=== PATIENT | female | born 1975 | race Caucasian/White ===

== ENCOUNTER 2017-06-29 21:40 | Inpatient (IN) | payer BC ==
[~2017-06-29] VITALS: Ht 152.4 cm; Wt 99.8 kg
[~2017-06-29 21:40] MED LIST: HYDR-2758 PO; ONDA4TAB10 SL; ONDA4TAB7 PO; OXYC-323 PO; PROAIR HFA8.5 GM IH
[2017-06-29 22:42] LABS: BASO # 0.1 x10^3/uL (0.0-0.2); BASO % 1 % (0-3); EOS % 2 % (0-3); HEMOGLOBIN 14.5 g/dL (12.0-15.5); LYMPH # 3.4 x10^3/uL (1.0-4.8); LYMPH % 30 % (24-48); MEAN CORPUSCULAR HEMOGLOBIN 31 pg (25-35); MEAN CORPUSCULAR HGB CONC 34 g/dL (31-37); MEAN CORPUSCULAR VOLUME 92 fL (79-100); MONO % 8 % (0-9); NEUT % 60 % (31-73); PLATELET COUNT 198 x10^3/uL (140-400); RED BLOOD COUNT 4.67 x10^6/uL (3.50-5.40); RED CELL DISTRIBUTION WIDTH 13.5 % (11.5-14.5); WHITE BLOOD COUNT 11.4 x10^3/uL (4.0-11.0)
[2017-06-29 22:50] LABS: CALCIUM 9.2 mg/dL (8.5-10.1); CREATININE 0.7 mg/dL (0.6-1.0); GFR 91.3; POTASSIUM 3.7 mmol/L (3.5-5.1)
[2017-06-29 22:55] LABS: ALBUMIN 3.9 g/dL (3.4-5.0); ALBUMIN/GLOBULIN RATIO 1.3 (1.0-1.7); TOTAL BILIRUBIN 0.3 mg/dL (0.2-1.0); TOTAL PROTEIN 6.8 g/dL (6.4-8.2)
[2017-06-29] MEDS ORDERED: ASPIRIN CHEWABLE 81 MG TABLET. PO ONE (23:00)
[2017-06-29] MEDS ORDERED: IV NORMAL SALINE 1000ML BAG 1,000 ML IV SCH (23:00)
--- NOTE | 2017-06-29 23:11 | PHYS DOC ---
Past Medical History Past Medical History: Asthma, GERD Past Surgical History: Cholecystectomy, , Gastric Bypass, Hysterectomy , Tonsillectomy Additional Past Surgical Histo: LAP BAND, GASTRIC SLEEVE, LEFT FOOT REPAIR Alcohol Use: Occasionally Drug Use: None Adult General Chief Complaint Chief Complaint: Palpitations HPI HPI 42-year-old female with a long history of tobacco abuse as well as a strong family history of coronary artery disease with mother who of an [place] at 44. Patient now presents to the emergency department after episode of chest pressure earlier today. Patient states she walked up a flight of steps and got profoundly short of breath with diaphoresis and nausea. Symptoms were relieved with rest. Denies productive cough or fever. No pleuritic pain. Pain is not worse with palpation or movement. Patient did have a stress test in the distant past about 10 years ago and she was told was abnormal but she never followed up and she does smoke daily Review of Systems Review of Systems Constitutional: Denies fever or chills [] Eyes: Denies change in visual acuity, redness, or eye pain [] HENT: Denies nasal congestion or sore throat [] Respiratory: Denies cough or shortness of breath [] Cardiovascular: No additional information not addressed in HPI [] GI: Denies abdominal pain, nausea, vomiting, bloody stools or diarrhea [] : Denies dysuria or hematuria [] Musculoskeletal: Denies back pain or joint pain [] Integument: Denies rash or skin lesions [] Neurologic: Denies headache, focal weakness or sensory changes [] Endocrine: Denies polyuria or polydipsia [] Current Medications Current Medications Current Medications Medications (Trade) Dose Ordered Sig/Fred Start Time Stop Time Status Last Admin Dose Admin Aspirin (Children'S Aspirin) 324 mg 1X ONCE 06/29/17 23:00 06/29/17 23:01 DC 06/29/17 22:44 324 MG Nicotine (Nicoderm Cq 21mg) 1 patch DAILY 06/29/17 23:15 06/29/17 23:12 1 PATCH Sodium Chloride 1,000 ml @ 100 mls/hr Q10H 06/29/17 23:00 06/30/17 08:59 06/29/17 22:44 100 MLS/HR Allergies Allergies Allergies Coded Allergies Type Severity Reaction Last Updated Verified Corticosteroids (Glucocorticoids) Allergy Intermediate Swelling 2/4/16 Yes naproxen Allergy Intermediate SEE COMMENT 11/27/15 No fluticasone Adverse Reaction Intermediate SEE COMMENT 11/27/15 Yes salmeterol Adverse Reaction Intermediate SEE COMMENT 11/27/15 Yes pregabalin Adverse Reaction Mild SEE COMMENT 06/29/17 No Physical Exam Physical Exam 2-year-old female well-appearing no acute distress clear lungs regular rate and rhythm nontender chest wall no crepitus or lower extremity edema benign exam Constitutional: Well developed, well nourished, no acute distress, non-toxic appearance. [] HENT: Normocephalic, atraumatic, bilateral external ears normal, oropharynx moist, no oral exudates, nose normal. [] Eyes: PERRLA, EOMI, conjunctiva normal, no discharge. [] Neck: Normal range of motion, no tenderness, supple, no stridor. [] Cardiovascular:Heart rate regular rhythm, no murmur [] Lungs & Thorax: Bilateral breath sounds clear to auscultation [] Abdomen: Bowel sounds normal, soft, no tenderness, no masses, no pulsatile masses. [] Skin: Warm, dry, no erythema, no rash. [] Back: No tenderness, no CVA tenderness. [] Extremities: No tenderness, no cyanosis, no clubbing, ROM intact, no edema. [] Neurologic: Alert and oriented X 3, no focal deficits noted. [] Psychologic: Affect normal, judgement normal, mood normal. [] Current Patient Data Vital Signs Vital Signs Date Time Temp Pulse Resp B/P (MAP) Pulse Ox O2 Delivery O2 Flow Rate FiO2 06/29/17 21:46 97.9 82 18 115/57 (76) 93 Room Air 97.9 Lab Values Laboratory Tests Test 06/29/17 21:58 White Blood Count 11.4 x10^3/uL (4.0-11.0) H Red Blood Count 4.67 x10^6/uL (3.50-5.40) Hemoglobin 14.5 g/dL (12.0-15.5) Hematocrit 43.0 % (36.0-47.0) Mean Corpuscular Volume 92 fL (79-100) Mean Corpuscular Hemoglobin 31 pg (25-35) Mean Corpuscular Hemoglobin Concent 34 g/dL (31-37) Red Cell Distribution Width 13.5 % (11.5-14.5) Platelet Count 198 x10^3/uL (140-400) Neutrophils (%) (Auto) 60 % (31-73) Lymphocytes (%) (Auto) 30 % (24-48) Monocytes (%) (Auto) 8 % (0-9) Eosinophils (%) (Auto) 2 % (0-3) Basophils (%) (Auto) 1 % (0-3) Neutrophils # (Auto) 6.8 x10^3uL (1.8-7.7) Lymphocytes # (Auto) 3.4 x10^3/uL (1.0-4.8) Monocytes # (Auto) 0.9 x10^3/uL (0.0-1.1) Eosinophils # (Auto) 0.2 x10^3/uL (0.0-0.7) Basophils # (Auto) 0.1 x10^3/uL (0.0-0.2) Sodium Level 143 mmol/L (136-145) Potassium Level 3.7 mmol/L (3.5-5.1) Chloride Level 105 mmol/L (98-107) Carbon Dioxide Level 26 mmol/L (21-32) Anion Gap 12 (6-14) Blood Urea Nitrogen 15 mg/dL (7-20) Creatinine 0.7 mg/dL (0.6-1.0) Estimated GFR (Cockcroft-Gault) 91.3 BUN/Creatinine Ratio 21 (6-20) H Glucose Level 113 mg/dL (70-99) H Calcium Level 9.2 mg/dL (8.5-10.1) Total Bilirubin 0.3 mg/dL (0.2-1.0) Aspartate Amino Transferase (AST) 17 U/L (15-37) Alanine Aminotransferase (ALT) 16 U/L (14-59) Alkaline Phosphatase 75 U/L (46-116) Troponin I Quantitative < 0.017 ng/mL (0.000-0.055) Total Protein 6.8 g/dL (6.4-8.2) Albumin 3.9 g/dL (3.4-5.0) Albumin/Globulin Ratio 1.3 (1.0-1.7) Laboratory Tests 06/29/17 21:58 Laboratory Tests 06/29/17 21:58 EKG EKG EKG normal sinus rhythm at 80 left axis deviation no STEMI interpreted by me [] Radiology/Procedures Radiology/Procedures Chest x-ray no acute disease interpreted by me Course & Med Decision Making Course & Med Decision Making Pertinent Labs and Imaging studies reviewed. (See chart for details) Signs and symptoms consistent with chest pain a possible cardiac etiology in a 42-year-old female with a strong family history and history of heavy smoking. Unremarkable. Patient stable in ED with a benign chest x-ray and negative troponin. Case discussed with Dr. Millie acharya hospitalist on-call who is aware of history and findings and agrees with admission admission to telemetry to his service with consultation to cardiology Dr. Roger [] Je Disclaimer Dragon Disclaimer This electronic medical record was generated, in whole or in part, using a voice recognition dictation system. Departure Departure Impression: Primary Impression: Chest pain Disposition: ADMITTED INPATIENT Admitting Physician: Millie Acharya Condition: STABLE Referrals: ANTWON BISHOP MD (PCP) EMILIANA VALLADARES MD Jun 29, 2017 23:11
[2017-06-29] MEDS ORDERED: NICOTINE 21MG PATCH. TD SCH (23:15)
[2017-06-29] MEDS ORDERED: LORazepam 1 MG TABLET PO ONE (23:45)
[2017-06-30 00:33] VITALS: BP 107/76
--- NOTE | 2017-06-30 03:11 | ACF ---
Admission Forms Criteria CARDIOLOGY GRG Clinical Indications for Admission to Inpatient Care ( Robinson/check or initial the applicable condition/criteria) Hospital admission is needed for appropriate care of the patient because of ANY ONE of the following: [ ] I. Hemodynamic instability as indicated by ALL of the following (1)(2)(3) (4)(5)(6)(7)(8)(9)(10) [ ]a) Vital sign abnormality not readily corrected by appropriate treatment with 12-24 hours for ANY ONE: [ ]i) Hypotension that persists despite appropriate treatment (eg, volume repletion) [ ]ii) Tachycardiathat persists despite appropriate tx ( e.g., analgesia, fluids, sedation as indicated [ ]iii) Orthostatic vital sign changes that persists despite appropriate treatment (eg, volume repletion) [ ]b) Vital sign abnormailty that is severe indicated by ANY ONE of the following: [ ]i) Inadequate perfusion indicated by ANY ONE of the following: [ ] 1) Lactic acidosis (> 2 mmol/L) [ ] 2) New abnormal capillary refill (> 3 seconds) [ ] 3) Reduced urine output [ ] 4) New altered mental status [ ] 5) Myocardial Ischemia [ ] 6) Other metabolic acidosis (arterial pH <7.35 ) not otherwise explained. [ ]ii) Mean arterial pressure[A] less than 60 mm Hg [ ]iii) Mean arterial pressure[A] less than 70 mm Hg after 30 minutes of appropriate treatment (eg, fluid resuscitation) [ ]iv) Sustained heart rate greater than 120 beats per minute in adult or child 6 years or older[B] [ ]v) IV inotropic or vasopressor medication required to maintain adequate blood pressure or perfusion [ ] II. Severe heart failure as indicated by ANY ONE of the following(17)(18) [ ]a) Respiratory distress [ ]b) Hypotension [ ]c) Debilitating anasarca refractory to therapy (eg, tissue breakdown with infection)[C](19) [ ]d) Cardiac arrhythmias of immediate concern [ ]e) Myocardial ischemia [ ] III. Cardiac arrhythmias or findings of immediate concern indicated by ANY ONE of the following (21)(22): [ ] a) Heart rhythms that are inherently dangerous or unstable indicated by ANY ONE of the following (23)(24)(25): [ ] i) Resuscitated ventricular fibrillation or cardiac arrest [ ] ii) Ventricular escape rhythm [ ] iii) Sustained ventricular tachycardia (30 seconds or more of ventricular rhythm at greater than 100 beats per minute) [ ] iv) Nonsustained ventricular tachycardia and ANY ONE of the following: [ ] 1) Suspected cardiac ischemia as cause or consequence of ventricular tachycardia [ ] 2) Acute myocarditis [ ] b) Unstable cardiac conduction defects indicated by ANY ONE of the following(25)(26)(27) [ ] i) Type II second-degree atrioventricular block [ ]ii) Third-degree atrioventricular block [ ]iii) New-onset left bundle branch block with suspected myocardial ischemia [ ]c) Any heart rhythm and ANY ONE of the following (23)(24)(28)(29) (30) [ ] i) Continuous long-term ECG monitoring needed (e.g., initiation of drug requiring monitoring for more than 24 hours) [ ] ii) Patient has automatic implanted cardioverter defibrillator that is repeatedly firing, malfunctioning, or in need of immediate adjustment of settings beyond the scope of ambulatory or observation care [ ]d) Heart rhythms of concern due to ANY ONE of the following: [ ] i) Hypotension [ ] ii) Respiratory distress [ ] iii) Association with other significant symptoms (e.g., bradycardia with syncope or ongoing dizziness, supraventricular tachycardia with chest pain (28)(29)(31) [ ] IV. Monitoring for cardiac contusion beyond the scope of observation care needed [A](32)(33)(34) [ ] V. Surgical or device complication (e.g., valve replacement complication , ICD disfunction or pacemaker dysfunction) (49)(50)(51)(52)(53)(54) [ ] . Inpatient palliative care needed. [F](51)(52) Also use Inpatient Palliative Care Criteria [ ] VII. Nonbacterial thrombotic (marantic) endocarditis(43)(44)(55)(56)(57) [X] VIII. Cardiology condition, symptom, or finding for which emergency and observation care has failed or are not considered appropriate. [ ] IX. Acute valvular disease requiring inpatient as indicated by ANY ONE of the following (40)(41) [ ]a) Acute valvular regurgitation (42) [ ]b) Noninfectious valvulitis (43)(44) [ ]c) Obstructive valve thrombosis (45)(46) [ ]d) Paravalvular leak(47)(48) [ ]e) Other significant valvular disorder remaining after emergency or observation level of care (as appropriate) [ ]X. Pericardial disease requiring inpatient treatment as indicated by ANY ONE of the following (35)(36)(37)(38) [ ]a) Suspected tamponade [ ]b) Hemopericardium [ ]c) Other significant pericardial disorder remaining after emergency or observation level of care (as appropriate)(39) [ ] XI. Cardiac ischemia beyond scope of emergency and observation care. [ ] XII. Cyanotic heart disease requiring inpatient care as indicated by 1 or more of the following(58)(59)(60): [ ]a) Acute onset of hypoxemia [ ]b) Exacerbation [ ] XIII. Hypertension requiring inpatient treatment as indicated by ANYONE of the following(11)(12)(13)(14): [ ]a) Severe hypertension (SBP greater than 180 mm Hg or DBP greater than 110 mm Hg, or greater than the 95th percentile for age, gender, and height in pediatric patients) that cannot be controlled (eg, to SBP less than 160 mm Hg and DBP less than 100 mm Hg) by emergency department or observation care treatment(15) [ ]b) Acute end organ damage secondary to hypertension (SBP greater than 140 mm Hg or DBP greater than 90 mm Hg) as indicated by ANYONE of the following: [ ] i) Hypertensive encephalopathy (eg, Altered mental status)(16) [ ] ii) Cerebral infarction [ ] iii) Intracranial hemorrhage [ ] iv) Myocardial ischemia or infarction [ ] v) Heart failure (eg, pulmonary edema) [ ] vi) Aortic dissection [ ] vii) Increased creatinine (new) with reduction of more than 50% in estimated glomerular filtration rate from baseline [ ] viii) Papilledema [ ] ix) Retinal hemorrhage [ ] x) Microangiopathic hemolytic anemia [ ] xi) Seizure [ ] xii) Other significant finding secondary to hypertension [ ] XIV. Complications of transplanted heart indicated by ANY ONE of the following(61): [ ]a) Acute graft rejection requiring inpatient management (eg, intravenous imunosuppression)(62)(63) [ ]b) Acute graft heart failure indicated by ANY ONE of the following(64): [ ] i) Hemodynamic instability [ ] ii) Cardiac arrhythmias of immediate concern [ ] iii) Pulmonary edema that is very severe (eg, mechanical ventilation needed, imminent or likely, need for 100% oxygen to keep oxygen saturation above 90%) [ ] iv) Pulmonary edema that is persistent as indicated by ALL of the following: [ ] 1) New need for oxygen therapy to keep oxygen saturation above 90 % (or increased FiO2 need from baseline) [ ] 2) Has not improved sufficiently with emergency department or observation care IV diuretics or other heart failure treatments[E]. [ ] iv) Altered mental status that is severe or persistent [ ] iv) Increased creatinine (new on laboratory test) with reduction of more than 50% in estimated glomerular filtration rate from baseline [ ] iv) Progressively (ongoing) rising creatinine (known from past laboratory test) with reduction of more than 25% in estimated glomerular filtration rate from baseline [ ] iv) Acute renal failure [ ] iv) Acute peripheral ischemia (eg, examination shows pulseless, cool, mottled, or cyanotic extremity) [ ] iv) Pulmonary artery catheter monitoring needed [ ] iv) Other sign or symptom of heart failure requiring inpatient treatment (ie, too severe or not responsive to outpatient and observation care treatment) [ ]c) Infection requiring inpatient management (eg, Hemodynamic instability, need for intravenous antimicrobial treatment)(66)(67)(68)(69)(70) [ ]d) Cardiac allograft vasculopathy requiring inpatient management (eg evidence of cardiacischemia)(71) [ ]e) Other complication of transplanted heart (eg, stroke, severe pulmonary hypertension, severe valvular dysfunction) requiring inpatient management(72) The original [facility] content created by [facility] has been revised. The portions of the content which have been revised are identified through the use of italic text, and [facility] has neither reviewed nor approved the modified material. All other unmodified content is copyright [facility]. Please see references footnoted in the original [facility] edition 2014 Admission Criteria Met?: Yes OMARI ZAPATA Jun 30, 2017 03:11
--- NOTE | 2017-06-30 07:19 | EKG ---
[facility] [address] [place] [address] Test Date: 2017-06-29 Test Time: 21:51:24 Pat Name: MEGHANA VERONICA Department: Room: Gender: F [place] Hand: : 1975 Requested By: EMILIANA VALLADARES Order Number: [id number] Reading MD: Measurements Intervals [place] Rate: 80 P: 54 MD: 150 QRS: 37 QRSD: 90 T: 29 QT: 370 QTc: 430 Interpretive Statements SINUS RHYTHM QRS(T) CONTOUR ABNORMALITY CONSIDER ANTEROLATERAL MYOCARDIAL DAMAGE RI6.01 Unconfirmed report No previous ECG available for comparison
--- NOTE | 2017-06-30 07:49 | RAD ---
Exam performed: One view chest. Indication: medical workup Date of Service: 06/30/2017 12:29 AM Comparison: 06/27/08. Single AP upright portable view chest findings: Cardiomediastinal silhouette is within limits of normal. No acute infiltrates, effusion or pneumothorax is detected. The bony structures are normal. Impression: No acute cardiopulmonary process is detected.
== END 2017-06-30 01:10 | disposition left against medical advice (07) | DRG 313 ==
LOC: ER 21:40 → 5 SOUTH 22:47
PROVIDERS: ADMIT Internal Medicine; ATTEND Internal Medicine
DX: R07.9 Chest pain, unspecified (principal); F17.210 Nicotine dependence, cigarettes, uncomplicated; K21.9 Gastro-esophageal reflux disease without esophagitis; J45.909 Unspecified asthma, uncomplicated; Z90.49 Acquired absence of other specified parts of digestive tract; Z90.710 Acquired absence of both cervix and uterus; Z98.84 Bariatric surgery status; Z88.8 Allergy status to other drugs, medicaments and biological substances; Z79.899 Other long term (current) drug therapy; Z82.49 Family history of ischemic heart disease and other diseases of the circulatory system
CPT/HCPCS: 36415; 71010; 80053; 84484; 85025; 93005; 96361; 96374; J2060; J7030; 99285-25

== ENCOUNTER → 2018-04-10 | Outpatient (CLI) | payer BC | END | disposition home or self-care (01) | LOC: KCIC US 15:16 | DX: M25.562 Pain in left knee (principal) | CPT/HCPCS: 73562; 93971 ==

== ENCOUNTER 2018-05-17 16:09 | Emergency (ER) | payer BC ==
[2018-05-17 16:51] LABS: ADD MAN DIFF? NO
[2018-05-17 16:54] LABS: BASO # 0.1 x10^3/uL (0.0-0.2); BASO % 1 % (0-3); EOS # 0.2 x10^3/uL (0.0-0.7); EOS % 2 % (0-3); HEMATOCRIT 43.7 % (36.0-47.0); HEMOGLOBIN 15.2 g/dL (12.0-15.5); LYMPH # 3.4 x10^3/uL (1.0-4.8); LYMPH % 33 % (24-48); MEAN CORPUSCULAR HEMOGLOBIN 32 pg (25-35); MEAN CORPUSCULAR HGB CONC 35 g/dL (31-37); MEAN CORPUSCULAR VOLUME 90 fL (79-100); MONO # 0.5 x10^3/uL (0.0-1.1); MONO % 5 % (0-9); NEUT % 59 % (31-73); PLATELET COUNT 226 x10^3/uL (140-400); RED BLOOD COUNT 4.83 x10^6/uL (3.50-5.40); RED CELL DISTRIBUTION WIDTH 13.6 % (11.5-14.5); WHITE BLOOD COUNT 10.1 x10^3/uL (4.0-11.0)
[2018-05-17 16:55] LABS: BILIRUBIN,URINE NEGATIVE (NEG); CLARITY,URINE CLEAR; GLUCOSE,URINE NEGATIVE (NEG); NITRITE,URINE NEGATIVE (NEG); PH,URINE 6.5; PROTEIN,URINE NEGATIVE (NEG-TRACE); UROBILINOGEN,URINE 0.2 mg/dL (0.2 mg/dL)
[2018-05-17] MEDS ORDERED: CONTRAST GIVEN. MC (17:00)
[2018-05-17] MEDS: IOHEXOL 240 MG/ML 50ML VIAL. PO (17:00)
[2018-05-17] MEDS: IOHEXOL 300 MG/ML 100ML VIAL. IV (17:00)
[2018-05-17 17:03] LABS: COLOR,URINE STRAW
[2018-05-17 17:04] LABS: ANION GAP 10 (6-14); BLOOD UREA NITROGEN 15 mg/dL (7-20); BUN/CREATININE RATIO 19 (6-20); CARBON DIOXIDE 27 mmol/L (21-32); CHLORIDE 102 mmol/L (98-107); CREATININE 0.8 mg/dL (0.6-1.0); GFR 77.9; GLUCOSE 83 mg/dL (70-99); POTASSIUM 3.7 mmol/L (3.5-5.1); SODIUM 139 mmol/L (136-145)
[2018-05-17 17:05] LABS: RBC,URINE 0 /HPF (0-2); SQUAMOUS EPITHELIAL CELL,UR FEW /LPF; WBC,URINE 0 /HPF (0-4)
[2018-05-17 17:06] LABS: BACTERIA,URINE FEW /HPF (0-FEW)
[2018-05-17 17:11] LABS: ALBUMIN 4.3 g/dL (3.4-5.0); ALBUMIN/GLOBULIN RATIO 1.1 (1.0-1.7); ALK PHOS 86 U/L (46-116); ALT (SGPT) 24 U/L (14-59); AST (SGOT) 27 U/L (15-37); DIRECT BILIRUBIN 0.1 mg/dL (0.0-0.2); TOTAL BILIRUBIN 0.3 mg/dL (0.2-1.0); TOTAL PROTEIN 8.1 g/dL (6.4-8.2)
[2018-05-17] MEDS: ONDANSETRON PF 4 MG/2 ML VIAL. IV (17:46)
[2018-05-17] MEDS: fentaNYL PF VIAL 100 MCG/2 ML VIAL IV (17:46)
[2018-05-17] MEDS: HYDROcodone/APAP 5/325MG 1 TAB TABLET PO (19:23)
== END 2018-05-17 19:26 | disposition home or self-care (01) ==
LOC: ER 16:09
DX: R10.84 Generalized abdominal pain (principal); R19.7 Diarrhea, unspecified; R11.0 Nausea; K21.9 Gastro-esophageal reflux disease without esophagitis; J45.909 Unspecified asthma, uncomplicated; F17.210 Nicotine dependence, cigarettes, uncomplicated; Z90.49 Acquired absence of other specified parts of digestive tract; Z90.710 Acquired absence of both cervix and uterus; Z88.8 Allergy status to other drugs, medicaments and biological substances
CPT/HCPCS: 36415; 74177; 80053; 80076; 81001; 85025; 96374; 96375; 99285-25; J2405; J3010; Q9966; Q9967

== ENCOUNTER → 2018-12-12 | Outpatient (CLI) | payer BC ==
[2018-05-17 18:00] VITALS: BP 106/61
[~2018-12-12] MED LIST changes: +ALBU2.5V8 IH; -HYDR-2758 PO; +HYDR-2761 PO; -OXYC-323 PO; +OXYC1TAB15 PO; -PROAIR HFA8.5 GM IH
--- NOTE | 2018-12-12 16:34 | KCIC ---
EXAM: Chest and bilateral ribs, 5 views. HISTORY: Pain. COMPARISON: None. FINDINGS: A frontal view of the chest and 3 views of the ribs are obtained. There is no infiltrate, pleural effusion or pneumothorax. The heart is normal in size. There are cholecystectomy clips. There are anastomotic sutures within the left upper quadrant. No displaced rib fracture is seen. IMPRESSION: No acute pulmonary or osseous finding. Electronically signed by: Narcisa Owens MD (12/12/2018 4:31 PM) [facility]-[email or web address]
== END | disposition home or self-care (01) ==
LOC: KCIC 15:54
PROVIDERS: ATTEND Family Medicine
DX: R07.81 Pleurodynia (principal); Z90.49 Acquired absence of other specified parts of digestive tract
CPT/HCPCS: 71111

== ENCOUNTER → 2019-01-12 | Outpatient (CLI) | payer BC ==
[2018-05-17 18:00] VITALS: BP 106/61
--- NOTE | 2019-01-12 15:46 | KCIC ---
EXAM: Lumbar spine MRI without contrast. HISTORY: Lower back pain and left hip pain. TECHNIQUE: Multiplanar, multisequence magnetic resonance imaging of the lumbar spine was performed without contrast. COMPARISON: Radiographs dated 07/06/2012. FINDINGS: There is no significant listhesis. The vertebral bodies are normal in height. No suspicious osseous lesion is seen. There is disc desiccation and slight decreased disc height at L4-L5. The conus terminates at L1. There are few incidental osseous hemangiomas. At L1-L2, L2-L3 and L3-L4, there is no stenosis. At L4-L5, there is a broad-based posterior central to left paracentral disc protrusion and annular tear superimposed on a disc bulge. There is mild bilateral facet arthropathy. There is mild left greater than right foraminal stenosis with abutment of the exiting left greater than right L4 nerve roots. There is moderate central canal stenosis. At L5-S1, there is no stenosis. IMPRESSION: 1. L4-L5: Broad-based posterior central to left paracentral disc protrusion and annular tear superimposed on a disc bulge and mild facet arthropathy, resulting in mild left greater than right foraminal stenosis with abutment of the exiting left greater than right L4 nerve roots and moderate central canal stenosis. 2. No additional significant lumbar foraminal or central canal stenosis Electronically signed by: Narcisa Owens MD (01/12/2019 3:44 PM) [facility]-KCIC[facility]
== END | disposition home or self-care (01) ==
LOC: KCIC MRI 14:40
PROVIDERS: ATTEND Family Medicine
DX: M51.26 Other intervertebral disc displacement, lumbar region (principal); M51.36 Other intervertebral disc degeneration, lumbar region; M12.88 Other specific arthropathies, not elsewhere classified, other specified site; M48.061 Spinal stenosis, lumbar region without neurogenic claudication; D18.09 Hemangioma of other sites
CPT/HCPCS: 72148

== ENCOUNTER → 2019-09-17 | Outpatient (CLI) | payer BC ==
[2018-05-17 18:00] VITALS: BP 106/61
[~2019-09-17] MED LIST changes: +CALC-71 PO; +DOCU-109 PO; +HYDR-2765 PO; +METH-38 PO; +MULT-460 PO
[2019-09-17 15:36] LABS: BASO # 0.1 x10^3/uL (0.0-0.2); BASO % 1 % (0-3); EOS # 0.3 x10^3/uL (0.0-0.7); EOS % 2 % (0-3); HEMATOCRIT 45.8 % (36.0-47.0); HEMOGLOBIN 15.5 g/dL (12.0-15.5); LYMPH # 2.5 x10^3/uL (1.0-4.8); LYMPH % 20 % (24-48); MEAN CORPUSCULAR HEMOGLOBIN 31 pg (25-35); MEAN CORPUSCULAR HGB CONC 34 g/dL (31-37); MEAN CORPUSCULAR VOLUME 92 fL (79-100); MONO # 0.6 x10^3/uL (0.0-1.1); MONO % 5 % (0-9); NEUT # 8.9 x10^3/uL (1.8-7.7); NEUT % 72 % (31-73); PLATELET COUNT 238 x10^3/uL (140-400); RED CELL DISTRIBUTION WIDTH 13.6 % (11.5-14.5); WHITE BLOOD COUNT 12.4 x10^3/uL (4.0-11.0)
[2019-09-17 15:52] LABS: ALBUMIN/GLOBULIN RATIO 1.1 (1.0-1.7); POTASSIUM 4.1 mmol/L (3.5-5.1); TOTAL BILIRUBIN 0.3 mg/dL (0.2-1.0); TOTAL PROTEIN 7.7 g/dL (6.4-8.2)
--- NOTE | 2019-09-21 14:28 | HP ---
ADMIT DATE: DATE OF SURGERY: 09/24/2019. HISTORY OF PRESENT ILLNESS: The patient is a pleasant 44-year-old who has difficulty with low back pain and left lateral leg pain. The problem started few months ago. She rates her pain currently as a 7/10. Standing and walking markedly increase her pain. She does get some relief with sitting. 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 She must go up and down stairs, which makes her condition worse. Sitting does help her. She has been taking [place] 5 and she has had physical therapy in December, which she said only helped to a limited degree. She was seen in a pain clinic, but found to be ALLERGIC TO STEROIDS. No epidurals were given. PAST SURGICAL HISTORY: D and C and 1991, in 1993, 1996, 1998, hysterectomy in , tonsillectomy in 1999, lap band in 2004, cholecystectomy in 2013, lap band out 2014, foot surgery 2014. FAMILY HISTORY: Diabetes and [place] at an early age. SOCIAL HISTORY: Employed in an office. . Exercises weekly. Smokes. Drinks 1-2 times per year. Drinks coffee and soda daily. ALLERGIES: No known drug allergies. CURRENT MEDICATIONS: [place]. REVIEW OF SYSTEMS: A 12-point review of systems was obtained and is noncontributory except for that mentioned above. PHYSICAL EXAMINATION: NEUROSURGERY EXAMINATION: GENERAL APPEARANCE: Alert, pleasant, no acute distress. HEAD: Normocephalic, atraumatic. SKIN: Warm and dry. MUSCULOSKELETAL: Lumbar paraspinal muscle bulk is normal, restricted range of motion of lumbar spine, [id number] tenderness of lower lumbar spine with palpation, normal range of motion of the lower extremities bilaterally. EXTREMITIES: No clubbing, cyanosis or edema. NEUROLOGIC: Alert and oriented x 3, normal recent and remote memory, strength 5/5 in bilateral lower extremities, sensory is intact to light touch in bilateral lower extremities. Reflexes are present and symmetric in lower extremities bilaterally, positive straight leg raising on the right, negative straight leg raising on the left, normal gait. IMAGING: Reviewed. I reviewed a lumbar MRI scan from 01/12/2019. On that study at L4-L5 on the left, there is a paracentral disk protrusion with a contact of exiting left L4 and L5 nerve roots. There is a moderate central canal stenosis at this level. ASSESSMENT: Intervertebral disk disorders with radiculopathy, lumbar region. PLAN: I believe the problems at L4-L5 are responsible for pain. She has failed with conservative measures. She has been dealing with this problem for 8 months. I recommend a lumbar microdiskectomy at L4-L5. I did discuss this with her including the risks and technique of surgery. I discussed the expected postoperative course. She understands. She would like to go ahead. We will make the arrangements. PEPE BRADFORD MD DR: ADRIAN/odessa JOB#: [id number] / [id number]
== END | disposition home or self-care (01) ==
LOC: SURGPAT 14:00
PROVIDERS: ATTEND Neurological Surgery
DX: Z01.818 Encounter for other preprocedural examination (principal); M51.16 Intervertebral disc disorders with radiculopathy, lumbar region; Z90.710 Acquired absence of both cervix and uterus; Z90.89 Acquired absence of other organs; Z90.49 Acquired absence of other specified parts of digestive tract; Z79.899 Other long term (current) drug therapy
CPT/HCPCS: 36415; 80053; 85025; 87641

== ENCOUNTER → 2019-09-24 | Day surgery (SDC) | payer BC ==
[~2019-09-24] VITALS: Ht 152.4 cm; Wt 105.2 kg
[~2019-09-24] MED LIST changes: +BACITRACIN 50,000 UNIT in IV NORMAL SALINE 1000ML BAG 1,000 ML IRR ONE; +BUPIVACAINE-EPI 0.5%-1:200000 MPF 30 ML VIAL. INJ ONE; +DESFLURANE 61 TO 120 MINUTES IH ONE; +GELATIN SPONGE SIZE 100. ONE; +GLYCOPYRROLATE 1 MG/5 ML VIAL. ONE; +HYDROcodone/APAP 7.5/325MG 1 TAB TABLET PO PRN; +HYDROmorphone 2 MG/ML VIAL IV PRN; +IV RINGERS,LACTATED 1000ML 1,000 ML IV SCH; +KETAMINE HCL IN NACL, ISO-OSM 50 MG/5 ML SYRINGE ONE; +KETOROLAC 60 MG/2 ML VIAL. ONE; +LIDOCAINE 2% PF 5 ML VIAL. ONE; +MIDAZOLAM HCL/PF 2 MG/2 ML VIAL. ONE; +MORPHINE SULFATE 2 MG/ML VIAL. IV PRN; +MORPHINE SULFATE 2 MG/ML VIAL. ONE; +NEOSTIGMINE METHYLSULFATE 5 MG/5 ML SYRINGE. ONE; +ONDANSETRON PF 4 MG/2 ML VIAL. IV PRN; +ONDANSETRON PF 4 MG/2 ML VIAL. ONE; +PHENYLEPHRINE 10 MG/ML VIAL. ONE; +PROCHLORPERAZINE 10 MG/2 ML VIAL. IV PRN; +PROPOFOL 20 ML IV ONE; +PROPOFOL 50 ML IV ONE; +REMIFENTANIL 1 MG VIAL. IV ONE; +ROCURONIUM 50 MG/5 ML VIAL. ONE; +THROMBIN TOPICAL 20,000 UNIT SPRAY.SYRN KIT TP ONE; +ceFAZolin 2GM PREMIX 2 GM/50 ML BAG IV ONE; +ePHEDrine PF IN SALINE 50 MG/10 ML SYRINGE. IV ONE; +fentaNYL PF VIAL 100 MCG/2 ML VIAL IV PRN; +fentaNYL PF VIAL 100 MCG/2 ML VIAL ONE
--- NOTE | 2019-09-24 06:38 | HP ---
ADMIT DATE: DATE OF SURGERY: 09/24/2019. HISTORY OF PRESENT ILLNESS: The patient is a pleasant 44-year-old who has difficulty with low back pain and left lateral leg pain. The problem started few months ago. She rates her pain currently as a 7/10. Standing and walking markedly increase her pain. She does get some relief with sitting. 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 She must go up and down stairs, which makes her condition worse. Sitting does help her. She has been taking [place] 5 and she has had physical therapy in December, which she said only helped to a limited degree. She was seen in a pain clinic, but found to be ALLERGIC TO STEROIDS. No epidurals were given. PAST SURGICAL HISTORY: D and C and 1991, in 1993, 1996, 1998, hysterectomy in , tonsillectomy in 1999, lap band in 2004, cholecystectomy in 2013, lap band out 2014, foot surgery 2014. FAMILY HISTORY: Diabetes and [place] at an early age. SOCIAL HISTORY: Employed in an office. . Exercises weekly. Smokes. Drinks 1-2 times per year. Drinks coffee and soda daily. ALLERGIES: No known drug allergies. CURRENT MEDICATIONS: [place]. REVIEW OF SYSTEMS: A 12-point review of systems was obtained and is noncontributory except for that mentioned above. PHYSICAL EXAMINATION: NEUROSURGERY EXAMINATION: GENERAL APPEARANCE: Alert, pleasant, no acute distress. HEAD: Normocephalic, atraumatic. SKIN: Warm and dry. MUSCULOSKELETAL: Lumbar paraspinal muscle bulk is normal, restricted range of motion of lumbar spine, [id number] tenderness of lower lumbar spine with palpation, normal range of motion of the lower extremities bilaterally. EXTREMITIES: No clubbing, cyanosis or edema. NEUROLOGIC: Alert and oriented x 3, normal recent and remote memory, strength 5/5 in bilateral lower extremities, sensory is intact to light touch in bilateral lower extremities. Reflexes are present and symmetric in lower extremities bilaterally, positive straight leg raising on the right, negative straight leg raising on the left, normal gait. IMAGING: Reviewed. I reviewed a lumbar MRI scan from 01/12/2019. On that study at L4-L5 on the left, there is a paracentral disk protrusion with a contact of exiting left L4 and L5 nerve roots. There is a moderate central canal stenosis at this level. ASSESSMENT: Intervertebral disk disorders with radiculopathy, lumbar region. PLAN: I believe the problems at L4-L5 are responsible for pain. She has failed with conservative measures. She has been dealing with this problem for 8 months. I recommend a lumbar microdiskectomy at L4-L5. I did discuss this with her including the risks and technique of surgery. I discussed the expected postoperative course. She understands. She would like to go ahead. We will make the arrangements. PEPE BRADFORD MD DR: ADRIAN/odessa JOB#: [id number] / [id number]
--- NOTE | 2019-09-24 11:03 | DISCH ---
DISCHARGE INSTRUCTIONS Condition on Discharge Condition on Discharge: Stable Activity After Discharge Activity Instructions for Disc: Activity as tolerated, Avoid exertion Other activity instructions: no driving for a week Bathing Instructions: Shower-keep dressing dry Diet after Discharge Additional Diet Restrictions: resume home diet Wound Incision Care Wound/Incision Care: Ice to area for comfort Other wound/incision instructi: may remove dressing in 48 hours if dry then may shower, no soaking Contacting the DRGila after DC Call your doctor for: Concerns you may have Follow-Up Follow up with: Dr. Bradford's nurse in 2 weeks [phone] PEPE BRADFORD MD Sep 24, 2019 11:03
--- NOTE | 2019-09-24 11:22 | OP ---
DATE OF SURGERY: 09/24/2019 PREOPERATIVE DIAGNOSES: Herniated lumbar disc, L4-L5 central on left side with left lumbar radiculopathy. POSTOPERATIVE DIAGNOSIS: Herniated lumbar disc, L4-L5 central on left side with left lumbar radiculopathy. OPERATION PERFORMED: Hemilaminotomy and microdiscectomy L4-L5 on the left. The operation was done with EMG monitoring, SSEP monitoring, fluoroscopy, microscopic dissection. SURGEON: Sunil Bradford M.D. TYPEWRITER MECHANIC: BRITANY Rojo assisted with the surgery. She assisted with the exposure and microdiscectomy as well as the closure. OPERATIVE INDICATIONS: The patient is a very pleasant 44-year-old woman who has had difficulty with lower back and left lateral leg pain for several months. She failed to improve with physical therapy and surgery is recommended. She understood the surgery, the risks, technique and expected postoperative course and wished to go ahead. DESCRIPTION OF PROCEDURE: Under general endotracheal anesthesia, the patient was positioned prone on the Bert frame. Lumbar region was prepped and draped in standard fashion. YURI hose and AV impulse boots were applied for DVT prophylaxis. A microscope was draped. Fluoroscopy was draped and brought into field. Monitoring was established. Ancef 2 grams was given less than 1 hour prior to initiation of the surgery. Using fluoroscopic guidance, incision was made directly over the L4-L5 interspace, dissected down through skin and subcutaneous tissue and placed a [place] microdisk retractor. I used fluoroscopic images to confirm my position. I brought in the high speed air drill and burred down a generous hemilaminotomy, trimmed the thickened ligamentum flavum, exposed the dura and performed a small partial foraminotomy. I then gently retracted the dura medially. There was a soft bulging disc and I incised the lateral aspect of this with a #11 blade and then performed a discectomy with pituitary rongeurs. As I worked, I was able to remove several very large disc fragments, which fully decompressed the entire region. I continued my discectomy until I felt it was completed and felt that I had an excellent decompression. I irrigated copiously with antibiotic solution, explored carefully and there were no retained fragments. The roots were quite free. I irrigated and then hemostasis remained excellent throughout the operation. I did use small amounts of bone wax as well as bipolar cautery where necessary. I removed the retractor, obtained hemostasis in the muscle, irrigated copiously, closed the wound in layers with absorbable suture and skin was closed with 4-0 subcuticular stitch. The operation went very well and I was quite pleased with the surgery. SUNIL BRADFORD MD DR: ADRIAN/odessa JOB#: [id number] / [id number] FARHAD
[2019-09-24 11:40] VITALS: BP 102/60
--- NOTE | 2019-09-26 15:07 | PATHOLOGY ---
[facility] Accession Number: [id number] . 01 Material submitted: . vertebral column - LUMBAR DISC AND DECOMPRESSION . 01 Clinical history: . Lumbar herniated disc with radiculopathy . 02 Diagnosis: Segments of fibrocartilaginous and skeletal muscle tissue and bone, lumbar disc and decompression: - Degenerative changes of fibrocartilaginous tissue. (JPM:neeru; 09/26/2019) S 09/26/2019 0829 Local . 02 Comment: There is no evidence of an acute inflammatory process or malignancy. (JPM:neeru; 09/26/2019) . 02 Electronically signed: . Luis Eduardo Garza MD, Pathologist NPI- [id number] . 01 Gross description: . Received in formalin labeled "Faby Pate, lumbar disc and decompression," is a 4.2 x 2.5 x 1.1 cm aggregate of pale harden to hemorrhagic soft tissue fragments and fragments of bone/cartilage. The specimen is submitted representatively in cassette A1, following decalcification. ([facility]; 09/25/2019) XDC/XDC 09/25/2019 0730 Local . 02 Pathologist provided ICD-10: M51.26, M54.16 . 02 CPT . 193149, [id number] Specimen Comment: A courtesy copy of this report has been sent to [phone] Specimen Comment: [phone] Specimen Comment: Report sent to / DR ALMAGUER Performed at: 01 [facility] [address], [place], [place] [id number] MD Sudhir Jaeger MD Phone: [phone] Performed at: 02 [facility] [address], [place] [id number] MD Luis Eduardo Garza MD Phone: [phone]
== END ==
LOC: SURG 07:06
PROVIDERS: ATTEND Neurological Surgery
DX: M51.16 Intervertebral disc disorders with radiculopathy, lumbar region (principal); J45.909 Unspecified asthma, uncomplicated; G47.30 Sleep apnea, unspecified; F32.9 Major depressive disorder, single episode, unspecified; E66.01 Morbid (severe) obesity due to excess calories; Z68.42 Body mass index [BMI] 45.0-49.9, adult; Z87.891 Personal history of nicotine dependence; Z90.49 Acquired absence of other specified parts of digestive tract; Z72.89 Other problems related to lifestyle
CPT/HCPCS: 63030; 88304; 88311; 97116; 97162; 97530; A7015; J0171; J0696; J1885; J2001; J2250; J2270; J2405; J2704; J2710; J3010; J3490; J7030; 76000